=== PATIENT | female | born 1995 | race Caucasian/White ===

== ENCOUNTER 2017-10-13 12:41 | Outpatient (CLI) | END 2017-10-13 18:15 | disposition home or self-care (01) ==

== ENCOUNTER 2017-11-23 10:53 | Outpatient (CLI) | END 2017-11-23 13:42 | disposition home or self-care (01) ==

== ENCOUNTER 2017-12-21 11:19 | Outpatient (CLI) | END 2017-12-21 13:17 | disposition home or self-care (01) ==

== ENCOUNTER 2017-12-27 18:50 | Inpatient (IN) | END 2017-12-29 18:30 | disposition home or self-care (01) | DRG 775 ==